=== PATIENT | female | born 1995 | race Caucasian/White ===

== ENCOUNTER 2017-11-10 11:48 | Emergency (ER) | payer SELFPAY ==
[2017-11-10 12:10] VITALS: BP 123/78
--- NOTE | 2017-11-10 12:22 | ED ---
- HPI Summary HPI Summary: 22F presents with needle stick injury to left thumb. needle slipped when pushing needle safety on. It occurred on 11/07 at 2:00pm. She believes her tetanus is up to date. The needle stick was an allergy shot that was given subcutaneous. blood was drawn from thumb. She immediately cleaned the area. She does not know anything about the source patient. The source patient is going to be tested today or tomorrow. She has no medical conditions. - History of Current Complaint Chief Complaint: UCWounds Stated Complaint: NEEDLE STICK EXPOSURE Time Seen by Provider: 11/10/17 12:18 PMH/Surg Hx/FS Hx/Imm Hx Endocrine/Hematology History: Denies: Hx Anticoagulant Therapy Respiratory History: Denies: Hx Asthma Infectious Disease History: No Infectious Disease History: Denies: Traveled Outside the [place] in Last 30 Days - Family History Known Family History: Negative: Diabetes - Social History Alcohol Use: None Substance Use Type: Reports: None Smoking Status (MU): Never Smoked Tobacco Review of Systems Negative: Fever Negative: Chest Pain Negative: Shortness Of Breath Positive: Other - needlestick left thumb All Other Systems Reviewed And Are Negative: Yes Physical Exam Triage Information Reviewed: Yes Vital Signs On Initial Exam: Initial Vitals Temp Pulse Resp BP Pulse Ox 98.1 F 92 18 123/78 97 11/10/17 12:06 11/10/17 12:06 11/10/17 12:06 11/10/17 12:06 11/10/17 12:06 Vital Signs Reviewed: Yes Appearance: Positive: Well-Appearing Skin: Positive: Warm, Dry, Other - pinpoint lesion left thumb Head/Face: Positive: Normal Head/Face Inspection Eyes: Positive: Normal, Conjunctiva Clear Respiratory/Lung Sounds: Positive: Clear to Auscultation, Breath Sounds Present Cardiovascular: Positive: Normal, RRR Musculoskeletal: Positive: Strength/ROM Intact - left hand, Other - good pulses Neurological: Positive: Normal Psychiatric: Positive: Normal Diagnostics - Vital Signs Vital Signs Temp Pulse Resp BP Pulse Ox 11/10/17 12:06 98.1 F 92 18 123/78 97 - Laboratory Lab Statement: Any lab studies that have been ordered have been reviewed, and results considered in the medical decision making process. Needlestick Course/Dx - Course Course Of Treatment: 22F presents with needle stick injury to left thumb. needle slipped when pushing needle safety on. It occurred on 11/07 at 2:00pm. She believes her tetanus is up to date. The needle stick was an allergy shot that was given subcutaneous. blood was drawn from thumb. She immediately cleaned the area. She does not know anything about the source patient. The source patient is going to be tested today or tomorrow. She has no medical conditions. Is pinpoint lesion on her left thumb. Due to being greater than 72 hours after exposure will not start PEP. This was not a high risk stick as injection was given subcutaneous. If results come back positive for HIV will follow-up with Dr. Mendoza and as can discuss starting PEP as unlikely to be affected at that time. We'll get baseline labs. Otherwise we'll have follow- up with primary. Patient understands agrees with plan. 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
[2017-11-10 15:26] LABS: ABS Basophils 0.1 10^3/ul (0-0.2); ABS Eosinophils 0.1 10^3/ul (0-0.6); ABS Lymphocytes 3.1 10^3/ul (1.0-4.8); ABS Monocytes 0.8 10^3/ul (0-0.8); ABS Neutrophils 9.2 10^3/ul (1.5-7.7); ABS Nucleated RBC 0 10^3/ul; Eosinophil % 0.4 % (0-6); Hematocrit 42 % (35-47); Lymphocyte % 23.3 % (25-47); Mean Corpuscular HGB Conc 34 g/dl (31-36); Mean Corpuscular Hemoglobin 30 pg (27-31); Mean Corpuscular Volume 90 fL (80-97); Mean Platelet Volume 8.3 um3 (7.4-10.4); Nucleated Red Blood Cells % 0; Platelet Count 354 10^3/ul (150-450); Red Blood Count 4.65 10^6/ul (4.0-5.4); Red Cell Distribution Width 14 % (10.5-15); White Blood Count 13.2 10^3/ul (3.5-10.8)
[2017-11-10 15:54] LABS: EGFR Non-African American 83.3 (>60)
--- NOTE | 2017-11-11 15:08 | UC ---
- Progress Note Progress Note: CBC with mildly elevated white count at 13.2. She was seen at for a needle stick and I am not sure if she had other symptoms. No past labs to trend. Please forward labs to her PCP and have her f/u with her PCP. 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
== END 2017-11-10 12:40 | disposition home or self-care (01) ==
LOC: UCEAST 11:48
DX: S61.032A Puncture wound without foreign body of left thumb without damage to nail, initial encounter (principal); W46.1XXA Contact with contaminated hypodermic needle, initial encounter; Y93.F9 Activity, other caregiving; Y92.531 Health care provider office as the place of occurrence of the external cause; Y99.0 Civilian activity done for income or pay; D72.829 Elevated white blood cell count, unspecified; Z32.02 Encounter for pregnancy test, result negative
CPT/HCPCS: 36415; 80053; 80074; 84702; 85025; 86703; 99201; G0463